=== PATIENT | female | born 1945 | race Hispanic/Latino ===

== ENCOUNTER 2020-05-10 09:55 | Emergency (ER) | payer MEDICARE, OTHER ==
[~2020-05-10] VITALS: Ht 167.6 cm; Wt 73.3 kg
[~2020-05-10 09:55] MED LIST: CARBAMAZEPINE200 MG PO; METOPROLOL TART50 MG PO
--- NOTE | 2020-05-10 12:01 | Emergency Department Note ---
History of Present Illnes History of Present Illness Chief Complaint: Skin Rash or Abscess History of Present Illness This is a 74 year old female hx of breast cancer sent over by her oncologist for infected cyst on her. right chest. She had it for 3 months but it grew, getting worse for the last [address] Humphreys gave her abx but not getting better. 2.5 x 2.5 cm right mass, cyst like structure with fluid like underneath. Arrival Mode: Car History limited by: language barrier Tongue Carrier Required: Yes Onset (how long ago): month(s) Radiation: Reports non-radiation Severity: moderate Onset quality: gradual Duration (how long): month(s) Progression: worsening Relieving factors: none Exacerbating factors: none Treatments prior to arrival: other Previous service: medications given (abx) Past Medical/Family History Physician Review I have reviewed the patient's past medical and family history. Any updates have been documented here. Past Medical History Recent Fever: No Clinical Suspicion of Infectio: No New/Unexplained Change in Ment: No Past Medical History: Hypertension Other Medical History: breast Cancer Past Surgical History: Mastectomy Social History Smoking Cessation: Never Smoker Counseling Performed: No Any Illegal Drug Use: No TB Exposure/Symptoms: No Family History Family history of heart diseas: No Other Any Pre-Existing Lines (PICC,: No Review of Systems Review of Systems Constitutional: Reports no symptoms EENTM: Reports no symptoms Cardiovascular: Reports no symptoms Respiratory: Reports no symptoms Gastrointestinal: Reports no symptoms Genitourinary: Reports no symptoms Musculoskeletal: Reports no symptoms Integumentary: Reports as per HPI, Reports lesions, Reports rash Neurological: Reports no symptoms Psychological: Reports no symptoms Endocrine: Reports no symptoms Hematological/Lymphatic: Reports no symptoms Physical Exam Related Data Allergies: Coded Allergies: No Known Allergies (Unverified , 01/11/17) Vital signs reviewed: Yes Physical Exam CONSTITUTIONAL Constitutional: Present well-developed, Present well-nourished HENT HENT: Present normocephalic, Present atraumatic, Present oropharynx clear/moist , Present nose normal HENT L/R: Present left ext ear normal, Present right ext ear normal EYES Eyes: Reports PERRL, Reports conjunctivae normal NECK Neck: Present ROM normal PULMONARY Pulmonary: Present effort normal, Present breath sounds normal CARDIOVASCULAR Cardiovascular: Present regular rhythm, Present heart sounds normal, Present capillary refill normal, Present normal rate GASTROINTESTINAL Abdominal: Present soft, Present nontender, Present bowel sounds normal GENITOURINARY Genitourinary: Present exam deferred SKIN Skin: Present warm, Present dry, Present lesion (2.5 x 2.5 cm right mid chest mass) MUSCULOSKELETAL Musculoskeletal: Present ROM normal NEUROLOGICAL Neurological: Present alert, Present oriented x 3, Present no gross motor or sensory deficits PSYCHOLOGICAL Psychological: Present mood/affect normal, Present judgement normal Procedures Incision and Drain Emergent situation: Yes Type of anesthesia: local Risks and benefits discussed: Yes Verbal consent obtained: Yes Consent given by: patient Imaging studies available/revi: no Prepped and draped in sterile: Yes Side verified: yes Site marked: yes Type: abscess Site: chest Skin preparation: Betadine Anesthesia method: local infiltration Patient sedated: No Needle aspiration: No Incision type: single straight Incision depth: subcutaneous Scalpel blade: 11 Wound management: probed and deloculated, irrigated with saline Drainage: purulent Drainage amount: moderate (2 cc) Wound treatment: wound left open Packing used: 1/2 in iodoform gauze Patient tolerance: tolerated well Procedure attestation: I performed the procedure Additional comments about 2 cc of pus and white cheese like malodorous substance. Assessment & Plan Medical Decision Making MDM infected cyst Reassessment Reassessment comfortable after Assessment & Plan Final Impression: (1) Abscess (2) Sebaceous cyst of breast Depart Disposition: HOME, SELF-shelter Meds Reported Medications Letrozole (LETROZOLE) 2.5 Mg Tablet, DAILY 05/10/20 Amoxicillin/Potassium Clav (AUGMENTIN 500-125 TABLET) 1 Each Tablet, 500 MG PO Q8H, #60 TAB 05/10/20 Carbamazepine (CARBAMAZEPINE) 200 Mg Tablet, 200 MG PO BID, #30 TAB 01/08/17 Metoprolol Tartrate (METOPROLOL TARTRATE) 50 Mg Tablet, 50 MG PO BID, TAB 01/08/17 Physician Attestation Provider Attestation pt has her own abx to take at home HELENE VALERIO MD May 10, 2020 12:01
[2020-05-10] MEDS ORDERED: LETROZOLE2.5 MG (12:09)
[2020-05-10] MEDS ORDERED: AUGMENTIN 500-1 EACH PO (12:09)
[2020-05-10 12:13] VITALS: BP 152/97
[2020-05-10] MEDS ORDERED: LORAZEPAM INJ 2 MG/ML VIAL IV ONE (12:15)
== END 2020-05-10 12:35 | disposition home or self-care (01) ==
LOC: FSED 10:06
DX: L02.213 Cutaneous abscess of chest wall (principal); N60.81 Other benign mammary dysplasias of right breast; I10 Essential (primary) hypertension; Z85.3 Personal history of malignant neoplasm of breast
CPT/HCPCS: 10060; 99283; J2060

== ENCOUNTER 2022-10-25 07:57 | Emergency (ER) | payer MEDICARE, MEDICAID ==
[~2022-10-25] VITALS: Ht 167.6 cm; Wt 73.0 kg
[~2022-10-25 07:57] MED LIST changes: +AUGMENTIN 500-1 EACH PO; +Demeclocycline Hcl PO; +HYDROCODON-ACE1 EAC9 PO; +LETROZOLE2.5 MG; +LOSARTAN POTAS100 MG PO; +LOVENOX40 MG/0.4 SC; +MELATONIN3 MG PO; +ONDANSETRON ODT4 MG PO; +PANTOPRAZOLE SO40 MG PO
[2022-10-25] MEDS ORDERED: ONDANSETRON HCL INJ 2MG/ML 2ML 2 MG/ML VIAL IV STA (08:09)
[2022-10-25] MEDS ORDERED: SODIUM CHLORIDE 0.9% 1000ML 1,000 ML IV ONE (08:15)
[2022-10-25] MEDS ORDERED: Morphine 4mg INJECTION 4 MG/ML INJ IV ONE (08:15)
[2022-10-25] MEDS ORDERED: SUCRALFATE 1 GM TAB PO STA (08:15)
[2022-10-25] MEDS ORDERED: DONNATAL/LIDOCAINE/MAALOX 30 ML SUSP PO ONE (08:15)
[2022-10-25 08:53] LABS: BASOPHILS # (AUTO) 0.1 (0.0-0.1); BASOPHILS % 0.8 % (0.0-1.0); EOSINOPHILS # (AUTO) 0.2 (0.0-0.4); EOSINOPHILS % 2.9 % (0.0-6.0); HEMATOCRIT 36.9 % (34.2-44.1); HEMOGLOBIN 12.2 g/dL (12.0-16.0); LYMPHOCYTES # (AUTO) 1.6 (1.0-3.2); LYMPHOCYTES % 18.9 % (18.0-39.1); MEAN CORPUSCULAR HEMOGLOBIN 28.9 pg (28-32); MEAN CORPUSCULAR HGB CONC 33.1 g/dL (31-35); MEAN CORPUSCULAR VOLUME 87.4 fL (81-99); MONOCYTES # (AUTO) 0.8 (0.2-0.8); MONOCYTES % 9.3 % (4.4-11.3); NEUTROPHILS # (AUTO) 5.7 (2.1-6.9); NEUTROPHILS % 67.6 % (38.7-80.0); PLATELET COUNT 230 x10e3/uL (140-360); RED BLOOD COUNT 4.22 x10e6/uL (3.6-5.1); RED CELL DISTRIBUTION WIDTH 14.5 % (11.7-14.4)
[2022-10-25 09:19] LABS: ALBUMIN/GLOBULIN RATIO 0.9 (0.8-2.0); ANION GAP 14.6 mmol/L (8-16); CALCIUM 8.5 mg/dL (8.4-10.2); CREATININE, SERUM 0.6 mg/dL (0.57-1.11); POTASSIUM 3.6 mmol/L (3.5-5.1)
[2022-10-25 09:29] LABS: CLARITY,URINE CLEAR (CLEAR); COLOR,URINE YELLOW (YELLOW); KETONES,URINE NEGATIVE (NEGATIVE); LEUKOCYTE ESTERASE ,URINE NEGATIVE (NEGATIVE); NITRITE,URINE NEGATIVE (NEGATIVE); PROTEIN,URINE DIPSTICK NEGATIVE (NEGATIVE); URINE UROBILINOGEN 0.2 mg/dL (0.2 - 1)
[2022-10-25] MEDS ORDERED: IOPAMIDOL 370 MG/ML 100 ML INFUS..BTL INJ ONE (09:40)
[2022-10-25 09:48] LABS: BACTERIA,URINE FEW /HPF; EPITHELIAL CELLS,URINE RARE /LPF
[2022-10-25] MEDS ORDERED: COLACE100 M1 PO (11:10)
== END 2022-10-25 12:47 | disposition home or self-care (01) ==
LOC: ER 08:05
DX: R10.13 Epigastric pain (principal); C34.90 Malignant neoplasm of unspecified part of unspecified bronchus or lung; C79.81 Secondary malignant neoplasm of breast; I10 Essential (primary) hypertension; Z20.822 Contact with and (suspected) exposure to COVID-19
CPT/HCPCS: 36415; 74177; 80053; 81001; 83690; 85025; 87400; 99284; J2270; J2405; J7030; Q9967; U0002

== ENCOUNTER 2022-10-31 12:24 | Inpatient (IN) | payer MEDICARE, MEDICAID ==
[~2022-10-31] VITALS: Ht 167.6 cm; Wt 73.0 kg
[~2022-10-31 12:24] MED LIST changes: +COLACE100 M1 PO
[2022-10-31] MEDS ORDERED: ONDANSETRON HCL INJ 2MG/ML 2ML 2 MG/ML VIAL IV STA (12:52)
[2022-10-31] MEDS ORDERED: SODIUM CHLORIDE 0.9% 1000ML 1,000 ML IV STA (12:52)
[2022-10-31 13:30] LABS: BASOPHILS % 0.5 % (0.0-1.0); EOSINOPHILS # (AUTO) 0.1 (0.0-0.4); EOSINOPHILS % 2.6 % (0.0-6.0); HEMATOCRIT 34.6 % (34.2-44.1); HEMOGLOBIN 11.1 g/dL (12.0-16.0); LYMPHOCYTES # (AUTO) 0.7 (1.0-3.2); LYMPHOCYTES % 15.7 % (18.0-39.1); MEAN CORPUSCULAR HEMOGLOBIN 29.4 pg (28-32); MEAN CORPUSCULAR HGB CONC 32.1 g/dL (31-35); MEAN CORPUSCULAR VOLUME 91.8 fL (81-99); MONOCYTES # (AUTO) 0.1 (0.2-0.8); MONOCYTES % 1.2 % (4.4-11.3); NEUTROPHILS # (AUTO) 3.3 (2.1-6.9); NEUTROPHILS % 79.3 % (38.7-80.0); PLATELET COUNT 247 x10e3/uL (140-360); RED BLOOD COUNT 3.77 x10e6/uL (3.6-5.1); RED CELL DISTRIBUTION WIDTH 13.9 % (11.7-14.4)
[2022-10-31] MEDS ORDERED: Morphine 4mg INJECTION 4 MG/ML INJ IV ONE (13:30)
[2022-10-31] MEDS: SODIUM CHLORIDE 0.9% 1000ML 1,000 ML IV SCH ×2 (13:40→16:11)
[2022-10-31 14:08] LABS: INR 0.94; PARTIAL THROMBOPLASTIN TIME 32.5 seconds (23.8-35.5); PROTHROMBIN TIME 12.8 seconds (11.9-14.5)
[2022-10-31 14:19] LABS: ALBUMIN 2.7 g/dL (3.5-5.0); ALBUMIN/GLOBULIN RATIO 0.7 (0.8-2.0); ANION GAP 11.2 mmol/L (8-16); CALCIUM 8.1 mg/dL (8.4-10.2); CREATININE, SERUM 0.52 mg/dL (0.57-1.11); MAGNESIUM 1.7 MG/DL (1.3-2.1); POTASSIUM 4.2 mmol/L (3.5-5.1)
[2022-10-31 15:22] VITALS: BP 147/88
[2022-10-31] MEDS: HYDROMORPHONE 1MG/1ML INJ IV PRN ×2 (16:07→19:07)
[2022-10-31] MEDS: ONDANSETRON HCL INJ 2MG/ML 2ML 2 MG/ML VIAL IV PRN ×2 (16:11→20:12)
[2022-10-31 16:55] VITALS: BP 147/88
[2022-10-31] MEDS ORDERED: ALPRAZOLAM0.25 MG PO (17:08)
[2022-10-31 17:23] VITALS: BP 147/88
[2022-10-31] MEDS ORDERED: PANTOPRAZOLE SO40 MG PO (19:22)
[2022-10-31 20:00] VITALS: BP 138/84
[2022-11-01 04:00] VITALS: BP 136/76
[2022-11-01] MEDS: SODIUM CHLORIDE 0.9% 1000ML 1,000 ML IV SCH ×2 (04:40→14:00)
[2022-11-01 05:52] LABS: BASOPHILS % 0.9 % (0.0-1.0); EOSINOPHILS # (AUTO) 0.1 (0.0-0.4); EOSINOPHILS % 2.6 % (0.0-6.0); HEMATOCRIT 32.8 % (34.2-44.1); HEMOGLOBIN 10.2 g/dL (12.0-16.0); LYMPHOCYTES # (AUTO) 0.8 (1.0-3.2); LYMPHOCYTES % 17.8 % (18.0-39.1); MEAN CORPUSCULAR HEMOGLOBIN 29.6 pg (28-32); MEAN CORPUSCULAR HGB CONC 31.1 g/dL (31-35); MEAN CORPUSCULAR VOLUME 95.1 fL (81-99); MONOCYTES # (AUTO) 0.1 (0.2-0.8); MONOCYTES % 1.5 % (4.4-11.3); NEUTROPHILS # (AUTO) 3.6 (2.1-6.9); NEUTROPHILS % 76.6 % (38.7-80.0); PLATELET COUNT 225 x10e3/uL (140-360); RED BLOOD COUNT 3.45 x10e6/uL (3.6-5.1); RED CELL DISTRIBUTION WIDTH 14.2 % (11.7-14.4)
[2022-11-01 06:07] LABS: ALBUMIN 2.4 g/dL (3.5-5.0); ALBUMIN/GLOBULIN RATIO 0.7 (0.8-2.0); ANION GAP 8.4 mmol/L (8-16); CALCIUM 8.1 mg/dL (8.4-10.2); CREATININE, SERUM 0.55 mg/dL (0.57-1.11); POTASSIUM 4.4 mmol/L (3.5-5.1)
[2022-11-01] MEDS: ONDANSETRON HCL INJ 2MG/ML 2ML 2 MG/ML VIAL IV PRN ×2 (06:42→17:35)
[2022-11-01] MEDS: HYDROMORPHONE 1MG/1ML INJ IV PRN ×4 (06:42→17:09)
[2022-11-01 08:00] VITALS: BP 140/81
[2022-11-01 08:57] VITALS: BP 140/81
[2022-11-01] MEDS: CARBAMAZEPINE 200 MG TAB PO SCH ×2 (09:09→16:58)
[2022-11-01] MEDS: METOPROLOL TARTRATE 50 MG TAB PO SCH ×2 (09:10→16:58)
[2022-11-01 10:43] LABS: EOSINOPHILS % (MANUAL) 1 % (0-7); LYMPHOCYTES % (MANUAL) 22 % (19-48); MONOCYTES % (MANUAL) 3 % (3.4-9.0); NEUTROPHILS % (MANUAL) 74 % (40-74); PLATELET ESTIMATE ADEQUATE; PLATELET MORPHOLOGY COMMENT NORMAL; RBC MORPHOLOGY COMMENT NORMAL
[2022-11-01 13:17] VITALS: BP 163/93
[2022-11-01 16:47] VITALS: BP 153/87
[2022-11-01 20:00] VITALS: BP 157/88
[2022-11-02] VITALS (7 sets, daily range): BP systolic 135–170; BP diastolic 73–97
[2022-11-02] MEDS: SODIUM CHLORIDE 0.9% 1000ML 1,000 ML IV SCH ×3 (02:03→13:00)
[2022-11-02] MEDS: ONDANSETRON HCL INJ 2MG/ML 2ML 2 MG/ML VIAL IV PRN ×4 (02:03→18:59)
[2022-11-02] MEDS: HYDROMORPHONE 1MG/1ML INJ IV PRN ×5 (02:03→19:00)
[2022-11-02] MEDS: METOPROLOL TARTRATE 50 MG TAB PO SCH ×2 (09:05→18:38)
[2022-11-02] MEDS: CARBAMAZEPINE 200 MG TAB PO SCH ×2 (09:05→18:37)
[2022-11-03] VITALS (7 sets, daily range): BP systolic 148–163; BP diastolic 78–98
[2022-11-03] MEDS: SODIUM CHLORIDE 0.9% 1000ML 1,000 ML IV SCH ×3 (06:52→22:51)
[2022-11-03] MEDS: ONDANSETRON HCL INJ 2MG/ML 2ML 2 MG/ML VIAL IV PRN (08:16)
[2022-11-03] MEDS: HYDROMORPHONE 1MG/1ML INJ IV PRN (08:17)
[2022-11-03] MEDS ORDERED: HYDROCODONE/APAP 5MG-325MG TAB PO PRN (09:00)
[2022-11-03] MEDS: METOPROLOL TARTRATE 50 MG TAB PO SCH ×2 (09:10→17:22)
[2022-11-03] MEDS: CARBAMAZEPINE 200 MG TAB PO SCH ×2 (09:10→17:22)
[2022-11-03] MEDS: FENTANYL 50 MCG/HR PATCH TOP SCH (09:22)
[2022-11-03] MEDS: HYDROCODONE/APAP 10MG-325MG TAB PO PRN ×2 (17:21→22:34)
[2022-11-03] MEDS ORDERED: MINERAL OIL 132 ML BTL PR ONE (23:00)
[2022-11-03] MEDS ORDERED: LACTULOSE SYRUP 20 GM/30 ML UDC PO ONE (23:00)
[2022-11-04] VITALS (8 sets, daily range): BP systolic 141–184; BP diastolic 84–104
[2022-11-04] MEDS: HYDROCODONE/APAP 10MG-325MG TAB PO PRN ×2 (03:04→09:40)
[2022-11-04] MEDS: SODIUM CHLORIDE 0.9% 1000ML 1,000 ML IV SCH ×3 (05:55→21:26)
[2022-11-04] MEDS: POLYETHYLENE GLYCOL 3350 17 GM PACK PO SCH (09:31)
[2022-11-04] MEDS: CARBAMAZEPINE 200 MG TAB PO SCH ×2 (09:31→17:26)
[2022-11-04] MEDS: METOPROLOL TARTRATE 50 MG TAB PO SCH ×2 (09:31→17:27)
[2022-11-04] MEDS: LOSARTAN POTASSIUM 100 MG TAB PO SCH (11:05)
[2022-11-04] MEDS: ONDANSETRON HCL INJ 2MG/ML 2ML 2 MG/ML VIAL IV PRN (17:33)
[2022-11-04] MEDS: ALPRAZOLAM 0.25 MG TAB PO PRN (21:26)
[2022-11-05] VITALS (7 sets, daily range): BP systolic 155–170; BP diastolic 82–97
[2022-11-05] MEDS: SODIUM CHLORIDE 0.9% 1000ML 1,000 ML IV SCH (05:14)
[2022-11-05 07:18] LABS: HEMATOCRIT 38.2 % (34.2-44.1); HEMOGLOBIN 12.2 g/dL (12.0-16.0); LYMPHOCYTES # (AUTO) 0.7 (1.0-3.2); LYMPHOCYTES % 43.1 % (18.0-39.1); MEAN CORPUSCULAR HEMOGLOBIN 29.5 pg (28-32); MEAN CORPUSCULAR HGB CONC 31.9 g/dL (31-35); MEAN CORPUSCULAR VOLUME 92.3 fL (81-99); MONOCYTES # (AUTO) 0.2 (0.2-0.8); MONOCYTES % 11.1 % (4.4-11.3); NEUTROPHILS # (AUTO) 0.6 (2.1-6.9); NEUTROPHILS % 41.8 % (38.7-80.0); PLATELET COUNT 211 x10e3/uL (140-360); RED BLOOD COUNT 4.14 x10e6/uL (3.6-5.1); RED CELL DISTRIBUTION WIDTH 13.2 % (11.7-14.4)
[2022-11-05 08:55] LABS: EOSINOPHILS % (MANUAL) 2 % (0-7); LYMPHOCYTES % (MANUAL) 47 % (19-48); MONOCYTES % (MANUAL) 11 % (3.4-9.0); NEUTROPHILS % (MANUAL) 35 % (40-74)
[2022-11-05 08:56] LABS: PLATELET ESTIMATE ADEQUATE; PLATELET MORPHOLOGY COMMENT NORMAL; RBC MORPHOLOGY COMMENT NORMAL
[2022-11-05] MEDS: METOPROLOL TARTRATE 50 MG TAB PO SCH ×2 (09:45→17:23)
[2022-11-05] MEDS: POLYETHYLENE GLYCOL 3350 17 GM PACK PO SCH (09:46)
[2022-11-05] MEDS: LOSARTAN POTASSIUM 100 MG TAB PO SCH (09:46)
[2022-11-05] MEDS: CARBAMAZEPINE 200 MG TAB PO SCH ×2 (09:46→17:23)
[2022-11-05] MEDS: HYDROCODONE/APAP 10MG-325MG TAB PO PRN ×3 (09:58→19:55)
[2022-11-05] MEDS: ALPRAZOLAM 0.25 MG TAB PO PRN (20:02)
[2022-11-06] VITALS (8 sets, daily range): BP systolic 108–169; BP diastolic 76–104
[2022-11-06] MEDS: HYDROCODONE/APAP 10MG-325MG TAB PO PRN ×4 (07:34→23:03)
[2022-11-06] MEDS: POLYETHYLENE GLYCOL 3350 17 GM PACK PO SCH (09:00)
[2022-11-06] MEDS: LOSARTAN POTASSIUM 100 MG TAB PO SCH (09:31)
[2022-11-06] MEDS: CARBAMAZEPINE 200 MG TAB PO SCH ×2 (09:31→17:31)
[2022-11-06] MEDS: METOPROLOL TARTRATE 50 MG TAB PO SCH ×2 (09:32→17:31)
[2022-11-06] MEDS: FENTANYL 50 MCG/HR PATCH TOP SCH (09:32)
[2022-11-06] MEDS: ONDANSETRON HCL INJ 2MG/ML 2ML 2 MG/ML VIAL IV PRN ×3 (13:01→23:02)
[2022-11-06] MEDS: ALPRAZOLAM 0.25 MG TAB PO PRN (16:28)
[2022-11-07] VITALS (8 sets, daily range): BP systolic 94–145; BP diastolic 59–81
[2022-11-07] MEDS: HYDROCODONE/APAP 10MG-325MG TAB PO PRN ×3 (03:53→15:13)
[2022-11-07] MEDS: ONDANSETRON HCL INJ 2MG/ML 2ML 2 MG/ML VIAL IV PRN ×2 (04:03→08:51)
[2022-11-07 06:45] LABS: BASOPHILS % 1.8 % (0.0-1.0); EOSINOPHILS % 0.9 % (0.0-6.0); HEMOGLOBIN 9.8 g/dL (12.0-16.0); LYMPHOCYTES # (AUTO) 0.3 (1.0-3.2); LYMPHOCYTES % 22.5 % (18.0-39.1); MEAN CORPUSCULAR HEMOGLOBIN 29.3 pg (28-32); MEAN CORPUSCULAR HGB CONC 31.6 g/dL (31-35); MEAN CORPUSCULAR VOLUME 92.5 fL (81-99); MONOCYTES # (AUTO) 0.4 (0.2-0.8); MONOCYTES % 38.7 % (4.4-11.3); NEUTROPHILS # (AUTO) 0.4 (2.1-6.9); NEUTROPHILS % 35.2 % (38.7-80.0); RED BLOOD COUNT 3.35 x10e6/uL (3.6-5.1); RED CELL DISTRIBUTION WIDTH 13.8 % (11.7-14.4)
[2022-11-07 06:59] LABS: PLATELET COUNT 209 x10e3/uL (140-360)
[2022-11-07] MEDS: METOPROLOL TARTRATE 50 MG TAB PO SCH ×2 (08:52→17:14)
[2022-11-07] MEDS: CARBAMAZEPINE 200 MG TAB PO SCH ×2 (08:52→17:11)
[2022-11-07] MEDS: LOSARTAN POTASSIUM 100 MG TAB PO SCH (08:53)
[2022-11-07] MEDS: POLYETHYLENE GLYCOL 3350 17 GM PACK PO SCH (08:53)
[2022-11-07 11:16] LABS: BAND NEUTROPHILS % (MANUAL) 5 %; EOSINOPHILS % (MANUAL) 4 % (0-7); LYMPHOCYTES % (MANUAL) 26 % (19-48); MONOCYTES % (MANUAL) 20 % (3.4-9.0); NEUTROPHILS % (MANUAL) 39 % (40-74); PLATELET ESTIMATE ADEQUATE; PLATELET MORPHOLOGY COMMENT NORMAL
[2022-11-07] MEDS: ALPRAZOLAM 0.25 MG TAB PO PRN (17:11)
[2022-11-07] MEDS: SODIUM CHLORIDE 0.9% 1000ML 1,000 ML IV SCH (22:03)
[2022-11-08] VITALS (30 sets, daily range): BP systolic 97–190; BP diastolic 56–115
[2022-11-08] MEDS ORDERED: GUAIFENESIN/DEXTROMETHORPHAN LIQD 5 ML UDC PO PRN (01:45)
[2022-11-08] MEDS ORDERED: IPRATROPIUM BROMIDE 0.02% 2.5 ML NEB NEB PRN (01:45)
[2022-11-08] MEDS ORDERED: Vancomycin IV 1 GM in SODIUM CHLORIDE 0.9% 250ML 250 ML IV ONE (01:45)
[2022-11-08 02:11] LABS: BASOPHILS % 1.6 % (0.0-1.0); HEMATOCRIT 38.7 % (34.2-44.1); HEMOGLOBIN 12.9 g/dL (12.0-16.0); LYMPHOCYTES # (AUTO) 0.7 (1.0-3.2); LYMPHOCYTES % 36.1 % (18.0-39.1); MEAN CORPUSCULAR HEMOGLOBIN 29.5 pg (28-32); MEAN CORPUSCULAR HGB CONC 33.3 g/dL (31-35); MONOCYTES # (AUTO) 0.5 (0.2-0.8); MONOCYTES % 28.3 % (4.4-11.3); NEUTROPHILS # (AUTO) 0.6 (2.1-6.9); NEUTROPHILS % 32.4 % (38.7-80.0); PLATELET COUNT 273 x10e3/uL (140-360); RED BLOOD COUNT 4.37 x10e6/uL (3.6-5.1); RED CELL DISTRIBUTION WIDTH 14.5 % (11.7-14.4)
[2022-11-08 02:12] LABS: ABG PCO2 60 mmHg (35-45); ABG PH 7.35 (7.35-7.45)
[2022-11-08 02:13] LABS: ABG HCO3 33 mmol/L (22-26); ABG PO2 30 mmHg (80-105)
[2022-11-08 02:14] LABS: ABG TCO2 35
[2022-11-08 02:26] LABS: MEAN CORPUSCULAR VOLUME 88.6 fL (81-99)
[2022-11-08 02:29] LABS: ALBUMIN 2.7 g/dL (3.5-5.0); ALBUMIN/GLOBULIN RATIO 0.5 (0.8-2.0); ANION GAP 17.4 mmol/L (8-16); CALCIUM 8.6 mg/dL (8.4-10.2); CREATININE, SERUM 0.62 mg/dL (0.57-1.11); POTASSIUM 5.4 mmol/L (3.5-5.1)
[2022-11-08] MEDS: ACETAMINOPHEN 325 MG TAB PO PRN (02:41)
[2022-11-08] MEDS: CARBAMAZEPINE 200 MG TAB PO SCH ×2 (08:20→16:11)
[2022-11-08] MEDS: MULTIVITAMINS/MINERALS TAB PO SCH (08:20)
[2022-11-08] MEDS: METOPROLOL TARTRATE 50 MG TAB PO SCH ×2 (08:21→16:11)
[2022-11-08] MEDS: DOCUSATE SODIUM 100 MG CAP PO SCH ×2 (08:21→16:11)
[2022-11-08] MEDS: POLYETHYLENE GLYCOL 3350 17 GM PACK PO SCH (09:00)
[2022-11-08 11:14] LABS: ANION GAP 15.1 mmol/L (8-16); CALCIUM 7.9 mg/dL (8.4-10.2); CREATININE, SERUM 0.52 mg/dL (0.57-1.11); POTASSIUM 5.1 mmol/L (3.5-5.1)
[2022-11-08] MEDS: HYDROCODONE/APAP 5MG-325MG TAB PO PRN ×2 (11:25→16:57)
[2022-11-08] MEDS: ONDANSETRON HCL INJ 2MG/ML 2ML 2 MG/ML VIAL IV PRN ×2 (11:40→19:00)
[2022-11-08] MEDS: SODIUM CHLORIDE 0.9% 1000ML 1,000 ML IV SCH (13:18)
[2022-11-08 15:59] LABS: CLARITY,URINE CLEAR (CLEAR); COLOR,URINE YELLOW (YELLOW); KETONES,URINE NEGATIVE (NEGATIVE); LEUKOCYTE ESTERASE ,URINE SMALL (NEGATIVE); NITRITE,URINE NEGATIVE (NEGATIVE); PROTEIN,URINE DIPSTICK 1+ (NEGATIVE)
[2022-11-08 16:00] LABS: URINE UROBILINOGEN 2 mg/dL (0.2 - 1)
[2022-11-08 16:09] LABS: BACTERIA,URINE MODERATE /HPF; EPITHELIAL CELLS,URINE FEW /LPF; WBC,URINE (MAN) 21-50 /HPF (0-5)
[2022-11-08] MEDS: LOSARTAN POTASSIUM 100 MG TAB PO SCH (16:11)
[2022-11-08] MEDS: ALPRAZOLAM 0.25 MG TAB PO PRN (22:58)
[2022-11-09] VITALS (25 sets, daily range): BP systolic 108–185; BP diastolic 63–104
[2022-11-09] MEDS: HYDROCODONE/APAP 5MG-325MG TAB PO PRN ×3 (00:14→17:19)
[2022-11-09 06:56] LABS: BASOPHILS % 0.5 % (0.0-1.0); EOSINOPHILS % 0.3 % (0.0-6.0); HEMATOCRIT 32.8 % (34.2-44.1); HEMOGLOBIN 10.1 g/dL (12.0-16.0); LYMPHOCYTES # (AUTO) 0.7 (1.0-3.2); LYMPHOCYTES % 18.2 % (18.0-39.1); MEAN CORPUSCULAR HEMOGLOBIN 28.8 pg (28-32); MEAN CORPUSCULAR HGB CONC 30.8 g/dL (31-35); MEAN CORPUSCULAR VOLUME 93.4 fL (81-99); MONOCYTES # (AUTO) 1.7 (0.2-0.8); MONOCYTES % 44.7 % (4.4-11.3); NEUTROPHILS # (AUTO) 1.3 (2.1-6.9); NEUTROPHILS % 35.2 % (38.7-80.0); PLATELET COUNT 319 x10e3/uL (140-360); RED BLOOD COUNT 3.51 x10e6/uL (3.6-5.1); RED CELL DISTRIBUTION WIDTH 14.6 % (11.7-14.4)
[2022-11-09 07:30] LABS: ALBUMIN 2.1 g/dL (3.5-5.0); ALBUMIN/GLOBULIN RATIO 0.6 (0.8-2.0); ANION GAP 8.3 mmol/L (8-16); CALCIUM 8.2 mg/dL (8.4-10.2); CREATININE, SERUM 0.5 mg/dL (0.57-1.11); POTASSIUM 4.3 mmol/L (3.5-5.1)
[2022-11-09 07:48] LABS: BAND NEUTROPHILS % (MANUAL) 2 %; LYMPHOCYTES % (MANUAL) 20 % (19-48); MONOCYTES % (MANUAL) 39 % (3.4-9.0); NEUTROPHILS % (MANUAL) 36 % (40-74)
[2022-11-09 07:49] LABS: HYPOCHROMASIA SLIGHT; PLATELET ESTIMATE ADEQUATE; PLATELET MORPHOLOGY COMMENT NORMAL; RBC MORPHOLOGY COMMENT NORMAL
[2022-11-09 07:56] LABS: BLAST CELLS % MANUAL 3
[2022-11-09] MEDS: LOSARTAN POTASSIUM 100 MG TAB PO SCH (08:30)
[2022-11-09] MEDS: METOPROLOL TARTRATE 50 MG TAB PO SCH ×2 (08:31→17:19)
[2022-11-09] MEDS: MULTIVITAMINS/MINERALS TAB PO SCH (08:31)
[2022-11-09] MEDS: POLYETHYLENE GLYCOL 3350 17 GM PACK PO SCH (08:31)
[2022-11-09] MEDS ORDERED: CITRATE OF MAGNESIA 300ML BOTTLE PO ONE (09:00)
[2022-11-09] MEDS: DOCUSATE SODIUM 100 MG CAP PO SCH ×2 (09:56→19:08)
[2022-11-09] MEDS: FENTANYL 50 MCG/HR PATCH TOP SCH (09:57)
[2022-11-09] MEDS: CARBAMAZEPINE 200 MG TAB PO SCH ×2 (09:58→17:18)
[2022-11-09] MEDS ORDERED: BISACODYL 10 MG SUPP PR ONE (10:15)
[2022-11-09] MEDS ORDERED: BISACODYL 5 MG TAB EC PO ONE (10:15)
[2022-11-09] MEDS ORDERED: HYDROMORPHONE 1MG/1ML INJ IV STA (11:49)
[2022-11-09] MEDS: SODIUM CHLORIDE 0.9% 1000ML 1,000 ML IV SCH ×3 (13:40→23:52)
[2022-11-09] MEDS: ONDANSETRON HCL INJ 2MG/ML 2ML 2 MG/ML VIAL IV PRN ×2 (17:19→21:45)
[2022-11-09] MEDS: HYDRALAZINE HCL 20 MG/ML VIAL IV PRN (17:20)
[2022-11-09] MEDS: ENOXAPARIN 30 MG/0.3 ML SYR SC SCH (17:20)
[2022-11-09] MEDS: MELATONIN 3 MG TAB PO PRN (21:24)
[2022-11-09] MEDS: ACETAMINOPHEN 325 MG TAB PO PRN (21:25)
[2022-11-09] MEDS: ALPRAZOLAM 0.25 MG TAB PO PRN (21:40)
[2022-11-10] VITALS (21 sets, daily range): BP systolic 108–181; BP diastolic 69–109
[2022-11-10] MEDS: HYDROCODONE/APAP 5MG-325MG TAB PO PRN (04:35)
[2022-11-10] MEDS: SODIUM CHLORIDE 0.9% 1000ML 1,000 ML IV SCH ×3 (04:35→21:52)
[2022-11-10 07:43] LABS: BASOPHILS % 0.8 % (0.0-1.0); HEMATOCRIT 32.9 % (34.2-44.1); HEMOGLOBIN 10.4 g/dL (12.0-16.0); LYMPHOCYTES # (AUTO) 0.5 (1.0-3.2); LYMPHOCYTES % 14.2 % (18.0-39.1); MEAN CORPUSCULAR HEMOGLOBIN 29.1 pg (28-32); MEAN CORPUSCULAR HGB CONC 31.6 g/dL (31-35); MEAN CORPUSCULAR VOLUME 92.2 fL (81-99); MONOCYTES # (AUTO) 1.1 (0.2-0.8); MONOCYTES % 28.9 % (4.4-11.3); NEUTROPHILS # (AUTO) 2.1 (2.1-6.9); NEUTROPHILS % 54.3 % (38.7-80.0); PLATELET COUNT 423 x10e3/uL (140-360); RED BLOOD COUNT 3.57 x10e6/uL (3.6-5.1); RED CELL DISTRIBUTION WIDTH 14.6 % (11.7-14.4)
[2022-11-10 08:03] LABS: ALBUMIN/GLOBULIN RATIO 0.5 (0.8-2.0); ANION GAP 10.1 mmol/L (8-16); CALCIUM 8.1 mg/dL (8.4-10.2); CREATININE, SERUM 0.47 mg/dL (0.57-1.11); POTASSIUM 4.1 mmol/L (3.5-5.1)
[2022-11-10] MEDS: ONDANSETRON HCL INJ 2MG/ML 2ML 2 MG/ML VIAL IV PRN ×2 (08:10→12:31)
[2022-11-10] MEDS ORDERED: HYDROCORTISONE SOD SUCCINATE 100 MG VIAL IV ONE (08:45)
[2022-11-10] MEDS ORDERED: PROMETHAZINE 12.5MG/ NACL 0.9% 12.5 MG/50 ML BAG IV ONE (08:45)
[2022-11-10] MEDS ORDERED: MINERAL OIL 132 ML BTL PR ONE (09:00)
[2022-11-10] MEDS: MULTIVITAMINS/MINERALS TAB PO SCH ×2 (09:00→15:34)
[2022-11-10] MEDS: POLYETHYLENE GLYCOL 3350 17 GM PACK PO SCH (09:00)
[2022-11-10] MEDS: METOPROLOL TARTRATE 50 MG TAB PO SCH ×2 (09:53→17:09)
[2022-11-10] MEDS: CARBAMAZEPINE 200 MG TAB PO SCH ×2 (09:54→17:09)
[2022-11-10] MEDS: LOSARTAN POTASSIUM 100 MG TAB PO SCH (09:56)
[2022-11-10] MEDS: HYDRALAZINE HCL 20 MG/ML VIAL IV PRN (12:06)
[2022-11-10] MEDS: HYDROCODONE/APAP 10MG-325MG TAB PO PRN ×2 (12:11→19:32)
[2022-11-10] MEDS: AMLODIPINE BESYLATE 10 MG TAB PO SCH (15:33)
[2022-11-10] MEDS: DOCUSATE SODIUM 100 MG CAP PO SCH ×2 (15:34→17:09)
[2022-11-10] MEDS: ACETAMINOPHEN 325 MG TAB PO PRN ×2 (15:49→21:54)
[2022-11-10] MEDS: ENOXAPARIN 30 MG/0.3 ML SYR SC SCH (17:10)
[2022-11-10] MEDS: ALPRAZOLAM 0.25 MG TAB PO PRN (21:52)
[2022-11-10] MEDS: MELATONIN 3 MG TAB PO PRN (21:52)
[2022-11-11] VITALS (16 sets, daily range): BP systolic 121–176; BP diastolic 73–115
[2022-11-11] MEDS: HYDROCODONE/APAP 10MG-325MG TAB PO PRN ×3 (03:38→17:21)
[2022-11-11] MEDS: ONDANSETRON HCL INJ 2MG/ML 2ML 2 MG/ML VIAL IV PRN ×2 (05:31→11:43)
[2022-11-11] MEDS: SODIUM CHLORIDE 0.9% 1000ML 1,000 ML IV SCH ×2 (05:41→16:00)
[2022-11-11] MEDS: METOPROLOL TARTRATE 50 MG TAB PO SCH ×2 (08:57→17:22)
[2022-11-11] MEDS: DOCUSATE SODIUM 100 MG CAP PO SCH ×2 (08:57→17:20)
[2022-11-11] MEDS: LOSARTAN POTASSIUM 100 MG TAB PO SCH (08:58)
[2022-11-11] MEDS: CARBAMAZEPINE 200 MG TAB PO SCH ×2 (08:59→17:20)
[2022-11-11] MEDS: MULTIVITAMINS/MINERALS TAB PO SCH (08:59)
[2022-11-11] MEDS: AMLODIPINE BESYLATE 10 MG TAB PO SCH (08:59)
[2022-11-11] MEDS: POLYETHYLENE GLYCOL 3350 17 GM PACK PO SCH (09:00)
[2022-11-11 09:13] LABS: BASOPHILS % 0.8 % (0.0-1.0); HEMATOCRIT 34.1 % (34.2-44.1); HEMOGLOBIN 11.1 g/dL (12.0-16.0); LYMPHOCYTES # (AUTO) 0.8 (1.0-3.2); LYMPHOCYTES % 14.7 % (18.0-39.1); MEAN CORPUSCULAR HGB CONC 32.6 g/dL (31-35); MONOCYTES # (AUTO) 1.1 (0.2-0.8); MONOCYTES % 21.4 % (4.4-11.3); NEUTROPHILS # (AUTO) 3.1 (2.1-6.9); NEUTROPHILS % 60.7 % (38.7-80.0); PLATELET COUNT 475 x10e3/uL (140-360); RED BLOOD COUNT 3.83 x10e6/uL (3.6-5.1); RED CELL DISTRIBUTION WIDTH 15.2 % (11.7-14.4)
[2022-11-11 09:25] LABS: ALBUMIN 2.2 g/dL (3.5-5.0); ALBUMIN/GLOBULIN RATIO 0.6 (0.8-2.0); CALCIUM 8.4 mg/dL (8.4-10.2); CREATININE, SERUM 0.46 mg/dL (0.57-1.11)
[2022-11-11] MEDS: ENOXAPARIN 30 MG/0.3 ML SYR SC SCH (17:20)
[2022-11-11] MEDS: ALPRAZOLAM 0.25 MG TAB PO PRN (21:12)
[2022-11-12] VITALS: BP 165/88
[2022-11-12] MEDS: SODIUM CHLORIDE 0.9% 1000ML 1,000 ML IV SCH (00:23)
[2022-11-12] MEDS ORDERED: FUROSEMIDE INJ 10 MG/ML 4 ML VIAL IV ONE (01:45)
[2022-11-12 04:00] VITALS: BP 187/97
[2022-11-12] MEDS: HYDRALAZINE HCL 20 MG/ML VIAL IV PRN (05:14)
[2022-11-12] MEDS: ONDANSETRON HCL INJ 2MG/ML 2ML 2 MG/ML VIAL IV PRN ×2 (05:51→13:22)
[2022-11-12] MEDS: ALPRAZOLAM 0.25 MG TAB PO PRN (05:51)
[2022-11-12] MEDS: HYDROCODONE/APAP 10MG-325MG TAB PO PRN ×3 (06:33→21:28)
[2022-11-12 08:00] VITALS: BP 139/79
[2022-11-12 08:19] VITALS: BP 139/79
[2022-11-12] MEDS: MULTIVITAMINS/MINERALS TAB PO SCH (10:01)
[2022-11-12] MEDS: DOCUSATE SODIUM 100 MG CAP PO SCH ×2 (10:01→16:33)
[2022-11-12] MEDS: METOPROLOL TARTRATE 50 MG TAB PO SCH ×2 (10:02→16:33)
[2022-11-12] MEDS: POLYETHYLENE GLYCOL 3350 17 GM PACK PO SCH (10:03)
[2022-11-12] MEDS: AMLODIPINE BESYLATE 10 MG TAB PO SCH (10:03)
[2022-11-12] MEDS: LOSARTAN POTASSIUM 100 MG TAB PO SCH (10:04)
[2022-11-12] MEDS: FENTANYL 50 MCG/HR PATCH TOP SCH (10:17)
[2022-11-12] MEDS: CARBAMAZEPINE 200 MG TAB PO SCH ×2 (10:17→16:33)
[2022-11-12 12:15] VITALS: BP 151/86
[2022-11-12] MEDS: ENOXAPARIN 30 MG/0.3 ML SYR SC SCH (16:33)
[2022-11-12 20:00] VITALS: BP 163/85
[2022-11-12] MEDS: MELATONIN 3 MG TAB PO PRN (21:23)
[2022-11-13] VITALS (8 sets, daily range): BP systolic 146–178; BP diastolic 82–104
[2022-11-13] MEDS: ALPRAZOLAM 0.25 MG TAB PO PRN (02:34)
[2022-11-13] MEDS: HYDROCODONE/APAP 10MG-325MG TAB PO PRN ×2 (07:57→14:31)
[2022-11-13] MEDS: ONDANSETRON HCL INJ 2MG/ML 2ML 2 MG/ML VIAL IV PRN ×3 (07:57→21:18)
[2022-11-13] MEDS: POLYETHYLENE GLYCOL 3350 17 GM PACK PO SCH (09:00)
[2022-11-13] MEDS: METOPROLOL TARTRATE 50 MG TAB PO SCH ×2 (09:41→17:59)
[2022-11-13] MEDS: LOSARTAN POTASSIUM 100 MG TAB PO SCH (09:41)
[2022-11-13] MEDS: DOCUSATE SODIUM 100 MG CAP PO SCH ×2 (09:41→17:59)
[2022-11-13] MEDS: CARBAMAZEPINE 200 MG TAB PO SCH ×2 (09:41→17:59)
[2022-11-13] MEDS: AMLODIPINE BESYLATE 10 MG TAB PO SCH (09:41)
[2022-11-13] MEDS: MULTIVITAMINS/MINERALS TAB PO SCH (09:42)
[2022-11-13] MEDS ORDERED: GUAIFENESIN/CODEINE 5 ML LIQD PO ONE (13:00)
[2022-11-13] MEDS: ENOXAPARIN 30 MG/0.3 ML SYR SC SCH (17:00)
[2022-11-14] VITALS (10 sets, daily range): BP systolic 131–181; BP diastolic 86–112
[2022-11-14] MEDS: MELATONIN 3 MG TAB PO PRN ×2 (00:29→20:24)
[2022-11-14] MEDS: HYDROCODONE/APAP 10MG-325MG TAB PO PRN ×3 (00:29→17:05)
[2022-11-14] MEDS: POLYETHYLENE GLYCOL 3350 17 GM PACK PO SCH (09:00)
[2022-11-14] MEDS: DOCUSATE SODIUM 100 MG CAP PO SCH ×2 (09:11→17:04)
[2022-11-14] MEDS: CARBAMAZEPINE 200 MG TAB PO SCH ×2 (09:12→17:04)
[2022-11-14] MEDS: LOSARTAN POTASSIUM 100 MG TAB PO SCH (09:12)
[2022-11-14] MEDS: METOPROLOL TARTRATE 50 MG TAB PO SCH ×2 (09:12→17:05)
[2022-11-14] MEDS: MULTIVITAMINS/MINERALS TAB PO SCH (09:13)
[2022-11-14] MEDS: AMLODIPINE BESYLATE 10 MG TAB PO SCH (09:13)
[2022-11-14] MEDS: ALPRAZOLAM 0.25 MG TAB PO PRN (09:58)
[2022-11-14] MEDS ORDERED: GUAIFENESIN/CODEINE 5 ML LIQD PO PRN (10:15)
[2022-11-14] MEDS: ENOXAPARIN 30 MG/0.3 ML SYR SC SCH (17:10)
[2022-11-14] MEDS: ACETAMINOPHEN 325 MG TAB PO PRN (20:24)
[2022-11-15] VITALS (9 sets, daily range): BP systolic 111–169; BP diastolic 59–97
[2022-11-15] MEDS: ALPRAZOLAM 0.25 MG TAB PO PRN ×3 (00:23→17:10)
[2022-11-15] MEDS: DOCUSATE SODIUM 100 MG CAP PO SCH ×2 (09:00→17:09)
[2022-11-15] MEDS: POLYETHYLENE GLYCOL 3350 17 GM PACK PO SCH (09:00)
[2022-11-15] MEDS: MULTIVITAMINS/MINERALS TAB PO SCH (09:00)
[2022-11-15] MEDS: METOPROLOL TARTRATE 50 MG TAB PO SCH ×2 (09:00→17:09)
[2022-11-15] MEDS: FENTANYL 50 MCG/HR PATCH TOP SCH (09:34)
[2022-11-15] MEDS: HYDROCODONE/APAP 10MG-325MG TAB PO PRN ×2 (09:40→17:09)
[2022-11-15] MEDS: AMLODIPINE BESYLATE 10 MG TAB PO SCH (09:41)
[2022-11-15] MEDS: CARBAMAZEPINE 200 MG TAB PO SCH ×2 (09:41→17:09)
[2022-11-15] MEDS: LOSARTAN POTASSIUM 100 MG TAB PO SCH (09:42)
[2022-11-15] MEDS: ENOXAPARIN 30 MG/0.3 ML SYR SC SCH (17:16)
[2022-11-15] MEDS ORDERED: SODIUM CHLORIDE 0.9% 250ML 250 ML ONE (20:55)
[2022-11-16] VITALS: BP 151/78
[2022-11-16 04:00] VITALS: BP 146/80
[2022-11-16 07:40] VITALS: BP 153/87
[2022-11-16 07:41] VITALS: BP 153/87
[2022-11-16] MEDS ORDERED: HYDROCODONE/APAP 10MG-325MG TAB PO PRN (09:15)
[2022-11-16] MEDS: POLYETHYLENE GLYCOL 3350 17 GM PACK PO SCH (09:22)
[2022-11-16] MEDS: LOSARTAN POTASSIUM 100 MG TAB PO SCH (09:23)
[2022-11-16] MEDS: METOPROLOL TARTRATE 50 MG TAB PO SCH (09:23)
[2022-11-16] MEDS: DOCUSATE SODIUM 100 MG CAP PO SCH (09:23)
[2022-11-16] MEDS: CARBAMAZEPINE 200 MG TAB PO SCH (09:23)
[2022-11-16] MEDS: MULTIVITAMINS/MINERALS TAB PO SCH (09:23)
[2022-11-16] MEDS: AMLODIPINE BESYLATE 10 MG TAB PO SCH (09:24)
[2022-11-16] MEDS: ONDANSETRON HCL INJ 2MG/ML 2ML 2 MG/ML VIAL IV PRN (09:27)
[2022-11-16 12:16] VITALS: BP 152/91
[2022-11-16] MEDS ORDERED: LIDOCAINE JELLY 2% 10ML URO-JET ONE (13:58)
[2022-11-16] MEDS ORDERED: MIRALAX17 GM PO (14:45)
[2022-11-16] MEDS ORDERED: IPRATROPIU0.2 MG/1 M NEB (14:45)
[2022-11-16] MEDS ORDERED: NORVASC10 MG PO (14:45)
[2022-11-16] MEDS ORDERED: ONDANSETRON HCL 4 MG ORAL DISINTEGRATING TAB PO PRN (15:00)
== END 2022-11-16 15:52 | disposition home or self-care (01) | DRG 948 ==
LOC: ER 12:33 → ERHOLD 13:26 → MED/SURG2 15:15 → ICU 11-08 01:06 → MED/SURG3 11-11 14:09 → MED/SURG2 11-15 17:51
PROVIDERS: ADMIT Internal Medicine; ATTEND Internal Medicine
DX: G89.3 Neoplasm related pain (acute) (chronic) (principal); C79.51 Secondary malignant neoplasm of bone; C78.02 Secondary malignant neoplasm of left lung; C78.01 Secondary malignant neoplasm of right lung; E87.1 Hypo-osmolality and hyponatremia; R78.81 Bacteremia; I10 Essential (primary) hypertension; E78.5 Hyperlipidemia, unspecified; K76.9 Liver disease, unspecified; K86.9 Disease of pancreas, unspecified; E77.8 Other disorders of glycoprotein metabolism; E88.09 Other disorders of plasma-protein metabolism, not elsewhere classified; D63.0 Anemia in neoplastic disease; K59.00 Constipation, unspecified; M48.00 Spinal stenosis, site unspecified; G50.0 Trigeminal neuralgia; B96.89 Other specified bacterial agents as the cause of diseases classified elsewhere; Z85.3 Personal history of malignant neoplasm of breast; Z66 Do not resuscitate; Z20.822 Contact with and (suspected) exposure to COVID-19
CPT/HCPCS: 0223U; 36415; 36600; 71045; 72146; 74018; 74022; 80048; 80053; 81001; 82805; 83605; 83690; 83735; 85025; 85610; 85730; 87040; 87071; 87086; 87186; 87205; 93005; 94799; 96361; 99252; 99284; J0360; J0692; J1170; J1650; J1940; J2270; J2405; J3370; J7030; J7050